=== PATIENT | female | born 1990 | race Caucasian/White ===

== ENCOUNTER 2018-12-28 18:32 | Observation (INO) ==
--- NOTE | 2018-12-28 18:55 | Emergency Department Note ---
Disposition Clinical Impression: Ureter colic Vomiting Qualifiers: Vomiting type: unspecified Vomiting Intractability: non-intractable Nausea presence: with nausea Qualified Code(s): R11.2 - Nausea with vomiting, unspe cified Disposition: Home, Self-Care Condition: Good Instructions: Abdominal Pain (ED), Renal Colic (ED) Reasons to Return/Additional Instructions: Clear liquids only while vomiting. No dairy, no solids until vomiting stops completely. Drink small amounts of fluid frequently (at least 1 ounce every 30 minutes). Gatorade, sports drinks, missy shane, lemon [place] soda, herbal teas are the best choices. Use Imodium [id number] for diarrhea if present. Do not use other antidiarrheal products. Tylenol is best for aches or fever as ibuprofen in this illness can upset your stomach. Avoid orange juice, tomato juice, grapefruit juice, and milk Do not eat solids for at least 12 hours after vomiting has stopped. Then progress to dry toast (no butter or jelly), bouillon, or other clear soups. The emergency examination and workup today did not find any evidence of emergent intra-abdominal pathology. It is important though, that you are aware that some illnesses such as early appendicitis, bowel ischemia, bowel obstruction and others initially present without any significant changes in the exam or tests available and that these might progress to require treatment. For this reason, you should immediately return to the emergency department if you experience Fever, Increased pain, pain that changes in character, feelings of dizziness or weakness, especially while standing up, vomiting, fever, or any bleeding or if the pain in your abdomen gets worse, Increased pain, pain that changes from hurting all over to hurting in one spot, or your condition changes, you should be seen by a doctor. Call your family doctor. Follow-up with your family doctor or doctor to whom you have been referred. Follow all instructions given to you in the emergency department Important: When you had your blood pressure taken, if the top number was greater than 120 and/or the bottom number was greater than 80 you were diagnosed with prehypertension or hypertension, , it is recommended that you call your primary care provider or a primary care provider of your choice to arrange follow-up within 1 week. Elevated blood pressures which go untreated can lead to stroke or heart attack, kidney failure, or other life-threatening diseases. If you were prescribed for outpatient testing please call to [facility] to schedule an appointment for your test that was ordered. If you have been prescribed an antibiotic: Take it as instructed until it is all finished. If you find you cannot tolerate that medication for some reason, call your doctor for a replacement. If you have had an EKG reading in the emergency department, it will be reviewed by preventive maintenance engineer . If the review changes or diagnosis, you will be contacted. If you had a specimen collected for culture, a culture report takes 72 hours to generate. You will be contacted if change in treatment is needed based on the culture results. Return if your condition worsens or if you have severe pain, or worsening of symptoms such as fever, vomiting, or difficulty breathing or if you feel worse in any way. Call your primary senior care assistant to make a follow-up appointment as a result of this emergency department visit. If you do not have a primary care physician or specialist, Call to find a primary care or other specialist physician contact [email or web address] or call [phone] or call [place] [facility] for appointment at [phone] and make an appointment to be seen. If you have taken, received or been prescribed a drug /medication that may cause drowsiness (Percocet, Vicodin, Robaxin, methocarbamol, Tramadol, phenergan, promethazine, vistaril, hydroxyzine, atarax, Haldol, Trazadone, Diazepam, Lorazepam, Hydroxizine, haloperidol, Inapsine, droperidol, Xanax, Hydrocodone, Oxycodone, Codeine, Cocaine, Heroin or any others) do not drive, drink alcohol, or operate machinery that requires you to be alert for at least 8 hours. If you or your child was prescribed opiate medication as a result of a painful condition treated during this emergency visit, be aware that this medication comes with risks of addiction. Prescriptions: Ondansetron ODT [Zofran ODT] 4 mg SL Q8HR PRN #14 tab.rapdis PRN Reason: Nausea Referrals: Astrid Nogueira CNP [Primary Care Provider] - Time of Disposition: 20:02 Abdominal Pain HPI - General Stated Complaint: R kidney pain Time Seen by Provider: 12/28/18 18:38 Source: patient, family, other (Medical records) Mode of arrival: ambulatory Limitations: no limitations Nursing Notes Reviewed: Yes Vital Signs Reviewed: Yes - History of Present Illness HPI Narrative: Patient developed sudden onset of right flank pain 8 hours prior to arrival associated with radiation to the lower abdomen and remained unilateral. She had been diagnosed with a right ureteral calculi, failed outpatient management of her pain, had a stent placed by Santana Berry on Wednesday whose discharge plan indicates that she should remove the stent in 3 days Patient tells me that she had a call from the urology office today telling her to remove the stent mom states that stent was removed by patient at approximately 11 AM. Patient indicates ever since then the pain has been extremely intense. Feels similar to her previous kidney stone. Pain is right sided, flank pain, radiating, and very intense. In the last hour she has begun to vomit. There was associated groin pain and some urgency and difficulty urinating. The patient also experienced associated symptoms of nausea, vomiting, but denies seeing any blood in the urine pain character is described as sharp and is intense. It has stayed constant with increasing intensity to the pain. Denies associated fever or chest pain Past medical history: Patient has had multiple previous kidney stones Review of systems:. Nausea, vomiting, sweating, some difficulty feeling need to urinate frequently. Reports no visible blood in urine. All other systems reviewed and negative Physical exam: Constitutional: Patient is in distress with the severity of current pain level. Appears acutely un comfortable leaning forward at bedside vomiting yellowish fluid, holding her right flank moaning in pain. The patient appears well-developed and well-nourished. Head: Normocephalic and atraumatic External ears and scalp are normal Nose normal Mouth and throat: oropharynx is clear and moist mucous membranes are normal Eyes: Conjunctiva normal, extraocular muscle movements and lids are normal Neck normal range of motion and phonation normal. Cardiovascular: Rapid heart rate. Regular heart rhythm. Normal heart sounds and intact distal pulses Pulmonary chest: No respiratory distress. Effort normal and breath sounds are clear Abdomen: Soft and mildly tender diffusely. Normal appearance without distention and bowel sounds are normal. CVA: Tender to palpation on the right Muscular skeletal: Patient is tender over the lower back normal range of motion of extremities Neurologic: Patient is alert and oriented to person and place as well as time. They have normal strength. Skin is warm and dry and intact Psychiatric: Patient has anxious mood, speech is normal and behavior is normal. Thought content is normal - Related Data Home Medications Medication Instructions Recorded Confirmed Docusate [Colace] 100 mg PO BID 12/28/18 12/28/18 Previous Rx's Medication Instructions Recorded HYDROcodone/Acet 5/325 mg [[place] 1 tab PO Q6H PRN 4 Days #15 tab 12/26/18 5-325 mg] Phenazopyridine HCl [Pyridium] 200 mg PO TIDAC #12 tab 12/26/18 Ondansetron ODT [Zofran ODT] 4 mg SL Q8HR PRN #14 tab.rapdis 12/28/18 Allergies Allergy/AdvReac Type Severity Reaction Status Date / Time cefixime [From Suprax] Allergy Anaphylaxis Verified 12/28/18 18:48 All systems ED: reviewed and negative except as stated. Review of Systems: As Per HPI Abdominal Pain PMH - Past Medical History Medical history: Reports: kidney stones Female Surgical History: Reports: ureteral stent STAFF RESPIRATORY THERAPIST history: Reports: bilateral tubal ligation Psychiatric history: Reports: no psych history - Social History Smoking status: Current every day smoker Alcohol use: Reports: none Drug use: Reports: none Physical Exam See history of present illness Course - Reevaluation(s) Reevaluation #1: disc case w/ dr Blanchard who indicates that pt likely has transient ureteral edema as a result of stent removal also suggests B&O suppositories if they are available suggests unlikey to require readmission, would suggest repeat ct, to r/o residual fragments as a remote consideration but would agree w/ admission here or [facility] if needed. Time: 18:56 Reevaluation #2: Patient appears much more comfortable. States her pain is nearly resolved. He is tolerating by mouth fluids without any further nausea or vomiting. I reviewed the test results with patient / family member. They understand the need for follow-up They understand to return to the emergency department if symptoms worsen. MDM: The emergency examination and workup today do not find any evidence of emergent intra-abdominal pathology. I have considered all of the elements of the relevant differential diagnosis. The patient /family are aware of some illnesses such as early appendicitis, mesenteric ischemia, bowel obstruction and others initially present without any significant changes in the exam or tests available and that these might progress to require treatment. They are aware and are voicing understanding that if any of the following occur, they should immediately return to the emergency department: Increased pain, pain that changes in character, feeling dizzy or weak especially while standing up, vomiting, fever, or any bleeding. I discussed the patient's presentation, workup and exam. Opportunity given for questions to be answered. Verbal discharge instructions were given to this patient and available family members in addition to written discharge instructions provided. They verbalize understanding of these instructions and the need to return should symptoms worsen or new symptoms occur. . Time: 20:00 Vital Signs Temperature 98.4 F 12/28/18 18:40 Pulse Rate 78 12/28/18 18:40 Respiratory Rate 18 12/28/18 18:40 Blood Pressure 125/80 12/28/18 18:40 O2 Sat by Pulse Oximetry 96 12/28/18 18:40 Temperature 98.4 F 12/28/18 18:40 Pulse Rate 78 12/28/18 18:40 Respiratory Rate 18 12/28/18 18:40 Blood Pressure 125/80 12/28/18 18:40 O2 Sat by Pulse Oximetry 96 12/28/18 18:40 Oxygen Delivery Oxygen Delivery Room Air Abdominal Pain - MDM Narrative Medical decision making narrative: Ureteral colic - Differential Diagnosis Differential Diagnosis: Likely: abdominal pain non-specific, calculus of kidney - Medical Records Medical records reviewed: Yes I reviewed the patient's medical records. Had stent placed on 12/26 with instructions to remove in 3-5 days. - Lab Data Lab results reviewed: Yes I reviewed the patient's lab results. Lab Results 12/28/18 12/28/18 Range/Units 19:14 19:14 Urine Color [place] A (Yellow) Urine Clarity Cloudy A (Clear) Urine pH 6.5 (5.0-8.0) pH Units Ur Specific [place] 1.025 (1.010-1.025) Urine Protein >=300 H (Neg-Trace) mg/dL Urine Glucose (UA) 100 H (Normal) mg/dL Urine Ketones Trace H (Negative) mg/dL Urine Blood Large H (Negative) Urine Nitrite Positive A (Negative) Urine Bilirubin Small H (Negative) Urine Urobilinogen 2.0 H (Normal) mg/dL Ur Leukocyte Esterase Negative (Negative) Urine Microscopic RBC 50-100 H (0-3) per hpf Urine Microscopic WBC 3-5 H (0-3) per hpf Ur Squamous Epith Cells Few (None-Few) per lpf Urine Bacteria Many H (None-Few) per hpf Ur Culture Indicated? YES A (NO) Urine Test Negative (Negative) - Radiology Data Radiology results reviewed: Yes I reviewed the patient's radiology results. FINDINGS: There is a normal bowel gas pattern seen in the abdomen. There are no abnormal calcifications seen overlying the kidneys or along the course of the ureters. There are no abnormal calcifications seen overlying the bladder. XR/XR KUB IMPRESSION: No acute abnormality. D/ / Jin Grimm MD / Jin Grimm MD Interpreting Provider: Jin Grimm MD
[2018-12-28] MEDS: Ketorolac 30 MG/ML VIAL IM ONE ×2 (19:05→19:17)
[2018-12-28] MEDS: *HR* Promethazine 25 MG/ML VIAL IM ONE ×2 (19:05→19:18)
[2018-12-28] MEDS: *HR* HYDROmorphone 2 MG/ML SYRINGE IM ONE ×2 (19:05→19:18)
[2018-12-28] MEDS ORDERED: *HR* HYDROmorphone (PF) 1 MG/ML SYRINGE IVP ONE (19:09)
[2018-12-28] MEDS ORDERED: Ketorolac 30 MG/ML VIAL IVP ONE (19:09)
[2018-12-28] MEDS ORDERED: Promethazine 12.5 MG in 0.9 % Sodium Chloride 50 ML IVPB ONE (19:09)
[2018-12-28 19:22] LABS: Bilirubin,Urine Small (Negative); Blood,Urine Large (Negative); Clarity,Urine Cloudy (Clear); Color,Urine Orange (Yellow); Glucose,Urine (UA) 100 mg/dL (Normal); Ketones,Urine Trace mg/dL (Negative); Leukocyte Esterase,Urine Negative (Negative); Nitrite,Urine Positive (Negative); PH,Urine 6.5 pH Units (5.0-8.0); Protein,Urine >=300 mg/dL (Neg-Trace); Specific Gravity,Urine 1.025 (1.010-1.025)
[2018-12-28] MEDS ORDERED: *HR* Promethazine 25 MG/ML VIAL IVP ONE (19:30)
[2018-12-28 19:37] LABS: Bacteria,Urine Many per hpf (None-Few); RBC,Urine 50-100 per hpf (0-3); Squamous Epithelial Cell,Urine Few per lpf (None-Few)
[2018-12-28] MEDS: 0.9 % Sodium Chloride 1,000 ML IVC SCH ×3 (19:54→23:52)
[2018-12-28] MEDS ORDERED: *HR* FentaNYL (PF) 100 MCG/2 ML VIAL IVP ONE ×3 (20:31→21:48)
[2018-12-28] MEDS ORDERED: Naloxone 0.4 MG/ML INJ IVP PRN (22:46)
[2018-12-28] MEDS ORDERED: Promethazine 12.5 MG in 0.9 % Sodium Chloride 100 ML IVPB ONE (22:46)
[2018-12-28] MEDS ORDERED: Ondansetron 4 MG/2 ML VIAL IVP PRN (22:46)
[2018-12-28] MEDS ORDERED: *HR* Promethazine 25 MG/ML VIAL IVP PRN (22:46)
[2018-12-28] MEDS ORDERED: 0.9 % Sodium Chloride 1,000 ML IVC SCH (22:46)
[2018-12-28] MEDS: *HR* OxyCODONE Immed Rel 5 MG TABLET PO PRN (23:50)
[2018-12-29] MEDS: *HR* HYDROmorphone (PF) 1 MG/ML SYRINGE IVP PRN ×2 (03:34→09:32)
[2018-12-29] MEDS: 0.9 % Sodium Chloride 1,000 ML IVC SCH (03:59)
[2018-12-29 08:00] LABS: BUN/Creatinine Ratio 15 (6-26); Blood Urea Nitrogen 10 mg/dL (6-20); Calcium 7.1 mg/dL (8.6-10.3); Carbon Dioxide 17 mEq/L (23-29); Chloride 113 mEq/L (98-107); Glucose 100 mg/dL (70-105); Osmolality,Calculated 287 (280-300); Sodium 139 mEq/L (136-145); eGFR For African Americans > 60 (> 60); eGFR For Non-African Americans > 60 (> 60)
[2018-12-29] MEDS: *HR* OxyCODONE Immed Rel 5 MG TABLET PO PRN (08:21)
[2018-12-29] MEDS ORDERED: Isovue-370 500 ML BOTTLE IVP ONE ×2 (09:00→09:21)
[2018-12-29 09:08] LABS: Basophils % 0.4 %; Eosinophils # 0.1 K/mcL (0.0-0.6); Eosinophils % 0.8 %; Hematocrit 33.3 % (35.3-44.9); Hemoglobin 11.8 g/dL (11.5-15.4); Immature Granulocytes % 0.3 % (0-4); Lymphocytes # 2.1 K/mcL (0.6-4.6); Mean Corpuscular HGB Conc 35.4 g/dL (31.6-35.5); Mean Corpuscular Hemoglobin 31.6 pg (28.0-33.3); Mean Corpuscular Volume 89.3 fL (83.0-100.0); Mean Platelet Volume 10.9 fL (9.4-12.4); Monocytes # 0.5 K/mcL (0.0-1.3); Monocytes % 6.3 %; Neutrophils # 4.4 K/mcL (1.6-8.9); Platelet Count 181 K/mcL (140-400); Red Blood Count 3.73 M/mcL (3.82-4.97); Red Cell Distribution Width 12.5 % (11.5-14.5); Segmented Neutrophils % 62.2 %; White Blood Count 7.1 K/mcL (4.3-11.1)
--- NOTE | 2018-12-29 09:17 | Internal Med History&Physical ---
Date of Encounter: 12/29/18 Time of Encounter: 09:15 Assessment and Plan (1) Ureter colic Current visit: Yes Status: Acute Patient has been admitted to the medical floor for pain management due to ureterocolic. Patient with recent treatment per urology with ureter stent which was removed on Wednesday. Patient's pain began within 8 hours at removal of stent and has intensified. Patient's pain has only been moderately controlled during her stay and she continues with moderate hematuria. Patient has received IV fluid resuscitation during her stay. We will obtain a stat abdomen and pelvis CT scan with and without. We will contact urology at [facility] for possible transfer (2) Vomiting Current visit: Yes Status: Acute Currently patient denies any nausea but has had issues with vomiting overnight. We will continue with when necessary [place] Qualifiers: Vomiting type: unspecified Vomiting Intractability: non-intractable Nausea presence: with nausea Qualified Code(s): R11.2 - Nausea with vomiting, unspecified Internal Medicine - H&P: HPI Chief complaint: right flank pain Admitted From: Emergency Dept Plans for Post Hospital Care: Home History of present illness: Ms. Roy is a 28 year old female who presented to emergency department with complaints of right flank pain. Patient had stated that she had been seen by Dr. Steen for a right humeral calculi and had a ureter stent placed. Patient had D ureter stent removed on Wednesday and approximately 8 hours later she began to have a right abdominal flank pain which over time became intense. Patient stated that the pain was similar to pain she had when she had her renal stone. Patient reportedly had began vomiting and stated that she had began having difficulty with urination. Patient reports hematuria. Urology was notified and the plan at that time was to admit patient for pain control and to give high volume of fluids and evaluate overnight. Patient's pain has continued and intensity and she continues to have hematuria. Patient complaints of tenderness during palpation of abdomen and right lower back on percussion. Patient continues to require frequent pain medication, which she states has been moderately effective. Patient continues to describe her pain as a 7 out of 10 Patient with a history of renal stones. Past Med Surg Social Fam HX - Past Medical History Source: patient, old records reviewed Medical history: kidney stones Psychiatric history: no psych history - Past Surgical History Surgical History: no surgical history Additional surgical history: Right KIDNEY STENT. T&A - Social History Smoking Status: Current every day smoker Packs per day: 1 Smokeless Tobacco Status: No Alcohol use: none Drug use: none Internal Medicine - H&P: Meds HYDROcodone/Acet 5/325 mg [[place] 5-325 mg] 1 tab PO Q6H PRN 4 Days #15 tab 12/26/18 [Rx] Phenazopyridine HCl [Pyridium] 200 mg PO TIDAC #12 tab 12/26/18 [Rx] Docusate [Colace] 100 mg PO BID 12/28/18 [History] Ondansetron ODT [Zofran ODT] 4 mg SL Q8HR PRN #14 tab.rapdis 12/28/18 [Rx] Allergy/AdvReac Type Severity Reaction Status Date / Time cefixime [From Suprax] Allergy Anaphylaxis Verified 12/28/18 18:48 All Systems PM: A 10-system review of systems was performed and is negative for pertinent findings except as documented above in the HPI. - Constitutional Constitutional: as per HPI, no chills, no fever(s), no night sweats - EENT Eyes: as per HPI, no change in vision, no discharge, no pain, no photophobia Ears: as per HPI, no ear discharge, no ear pain, no tinnitus Nose, mouth and throat: as per HPI, no dysphagia, no nasal discharge, no neck pain, no sore throat - Cardiovascular Cardiovascular ROS IM: as per HPI, no chest pain, no diaphoresis, no dyspnea, no lightheadedness, no palpitations, no syncope - Respiratory Respiratory: as per HPI, no cough, no dyspnea, no wheezing, no excessive phlegm production - Gastrointestinal Gastrointestinal: as per HPI, no abdominal pain, no diarrhea, no hematemesis, no hematochezia, no melena, no nausea, no vomiting - Genitourinary Genitourinary: as per HPI, no change in urinary stream, no dysuria, no flank pain, no hematuria - Musculoskeletal Musculoskeletal ROS IM: as per HPI, no numbness, no tingling - Integumentary Integumentary IM: as per HPI, no rash, no unusual bruising - Neurological Neurological ROS: as per HPI, no confusion, no convulsions, no focal weakness, no numbness, no tingling, no tremor(s) - Psychiatric Psychiatric: as per HPI - Hematologic/Lymphatic Hematologic/Lymphatic: no easy bruising - Constitutional Vitals: Temp Pulse Resp BP Pulse Ox 98.8 F 119 16 112/69 100 12/29/18 07:26 12/29/18 07:26 12/29/18 07:26 12/29/18 07:26 12/29/18 07:26 General appearance: Present: A&O X 3, severe distress Exam: Patient currently with severe pain and having some difficulty with conversation - Head Head exam: Present: atraumatic, normocephalic - Eye Eye exam: Present: PERRL, conjuntiva pink, sclera anicteric Pupils: Present: PERRL - Neck Neck exam general surgery: Present: supple, trachea midline. Absent: lymphadenopathy - Respiratory Respiratory exam: Present: CTAB. Absent: accessory muscle use, rales, rhonchi, wheezes - Cardiovascular Cardiovascular exam: Present: RRR, +S1, +S2. Absent: diastolic murmur, gallop, rubs, systolic murmur - GI/Abdominal GI/Abdominal exam: Present: normal bowel sounds, soft, no peritoneal signs. Absent: distended, tenderness Additional comments: Patient with tenderness during palpation of right abdominal quadrants and to right abdominal flank during percussion of lower back - Additional comments: Hematuria - Extremities Exam Extremities exam: Present: warm, radial pulses palpable and symmetrical. Absent: calf tenderness, cyanotic, pedal edema - Neurological Exam Neurological exam: Present: CN II-XII intact, oriented X3, no focal deficits. Absent: pronater drift, facial droop, speech deficit - Skin Skin exam: Present: dry, intact Internal Med - H&P Results - Labs CBC & Chem 7: 12/28/18 18:45 12/29/18 07:30 Labs: Short CBC 12/28/18 Range/Units 18:45 WBC 7.1 (4.3-11.1) K/mcL Hgb 11.8 (11.5-15.4) g/dL Hct 33.3 L (35.3-44.9) % Plt Count 181 (140-400) K/mcL Neutrophils # 4.4 (1.6-8.9) K/mcL BMP 12/29/18 07:30 Sodium 139 Potassium 4.0 Chloride 113 H Carbon Dioxide 17 L BUN 10 Creatinine 0.67 Glucose 100 Calcium 7.1 L Urine 12/28/18 Range/Units 19:14 Urine Color [place] A (Yellow) Urine Clarity Cloudy A (Clear) Urine pH 6.5 (5.0-8.0) pH Units Ur Specific [place] 1.025 (1.010-1.025) Urine Protein >=300 H (Neg-Trace) mg/dL Urine Glucose (UA) 100 H (Normal) mg/dL - VTE Documentation of Mechanical Device: Intermittent pneumatic compression device
--- NOTE | 2018-12-29 09:39 | Discharge Summary ---
Orders not resulted at time of discharge: Pending orders 12/28/18 19:14 Culture,Urine [RM] Stat Date of Encounter: 12/29/18 Time of Encounter: 09:33 - Discharge Diagnosis (1) Ureter colic Priority: Primary Status: Acute Comments: Patient was admitted for fluid resuscitation and pain management overnight after reoccurrence of ureter colic. Pain is only been marginally controlled and patient is being in transferred to [place] for further evaluation and management per urology. (2) Vomiting Priority: Secondary Status: Acute Comments: Patient has experienced some vomiting, which has been controlled with the use of Zofran. We will continue this after discharge Qualifiers: Vomiting type: unspecified Vomiting Intractability: non-intractable Nausea presence: with nausea Qualified Code(s): R11.2 - Nausea with vomiting, unspecified Hospital course: Ms. Roy is a 28 year old female, who presented to emergency department with complaints of right flank pain. Patient had stated that she had been seen by Dr. Steen for a right humeral calculi and had a ureter stent placed. Patient had D ureter stent removed on Wednesday and approximately 8 hours later she began to have a right abdominal flank pain which over time became intense. Patient stated that the pain was similar to pain she had when she had her renal stone. Patient reportedly had began vomiting and stated that she had began having difficulty with urination. Patient reports hematuria. Urology was notified and the plan at that time was to admit patient for pain control and to give high volume of fluids and evaluate overnight. Patient's pain has continued and intensity and she continues to have hematuria. Patient complaints of tenderness during palpation of abdomen and right lower back on percussion. Patient continues to require frequent pain medication, which she states has been moderately effective. Patient continues to describe her pain as a 7 out of 10 Patient continues with severe right flank pain which has been only moderately controlled with current pain medications. Patient has received IV fluid resuscitation overnight but continues with moderate hematuria. Patient with increased intensity of pain during palpation of abdomen on the right quadrants and flank. Patient has been transferred to [facility] for further evaluation and treatment per urology. We will attempt to obtain a stat CAT scan of the abdomen and pelvis prior to her departure. Discharge discussed with: patient Time spent discussing smoking cessation with patient: 3 to 10 minutes - Time Spent with Patient Total time spent providing and/or coordinating discharge services: Time spent: Less than 30 minutes - Discharge Medications Prescriptions: New Ondansetron ODT [Zofran ODT] 4 mg SL Q8HR PRN #14 tab.rapdis PRN Reason: Nausea No Action HYDROcodone/Acet 5/325 mg [[place] 5-325 mg] 1 tab PO Q6H PRN 4 Days #15 tab PRN Reason: Pain Phenazopyridine HCl [Pyridium] 200 mg PO TIDAC #12 tab Docusate [Colace] 100 mg PO BID Home Medications: HYDROcodone/Acet 5/325 mg [[place] 5-325 mg] 1 tab PO Q6H PRN 4 Days #15 tab 12/26/18 [Rx] Phenazopyridine HCl [Pyridium] 200 mg PO TIDAC #12 tab 12/26/18 [Rx] Docusate [Colace] 100 mg PO BID 12/28/18 [History] Ondansetron ODT [Zofran ODT] 4 mg SL Q8HR PRN #14 tab.rapdis 12/28/18 [Rx] Allergies/Adverse Reactions: Allergy/AdvReac Type Severity Reaction Status Date / Time cefixime [From Suprax] Allergy Anaphylaxis Verified 12/28/18 18:48 Date of admission: 12/28/18 22:38 Primary care physician: Astrid Nogueira CNP Discharging clinician: [place] - Constitutional Vitals: Temp Pulse Resp BP Pulse Ox 98.8 F 119 16 112/69 100 12/29/18 07:26 12/29/18 07:26 12/29/18 07:26 12/29/18 07:26 12/29/18 07:26 General appearance: Present: A&O X 3, severe distress - Head Head exam: Present: atraumatic, normocephalic - Eye Eye exam: Present: PERRL, conjuntiva pink, sclera anicteric Pupils: Present: PERRL - Neck Neck exam general surgery: Present: supple, trachea midline. Absent: lymphadenopathy - Respiratory Respiratory exam: Present: CTAB. Absent: accessory muscle use, rales, rhonchi, wheezes - Cardiovascular Cardiovascular exam: Present: RRR, +S1, +S2. Absent: diastolic murmur, gallop, rubs, systolic murmur - GI/Abdominal GI/Abdominal exam: Present: normal bowel sounds, soft, no peritoneal signs. Absent: distended, tenderness Additional comments: Severe pain on palpation of right abdominal quadrants and during percussion right lower back - Additional comments: Hematuria - Extremities Exam Extremities exam: Present: warm, radial pulses palpable and symmetrical. Absent: calf tenderness, cyanotic, pedal edema - Neurological Exam Neurological exam: Present: CN II-XII intact, oriented X3, no focal deficits. Absent: pronater drift, facial droop, speech deficit - Skin Skin exam: Present: dry, intact - Patient Status Disposition: Transfer Critical Access Hosp Condition: Good Functional capacity at discharge: independent ambulation Overall status at discharge: patient is not back to baseline - Discharge Instructions Follow Up With: Astrid Nogueira BOILER ROOM OPERATOR [Primary Care Provider] - Forms: ED Satisfaction Letter - Diet and Activity Activity: increase activity as tolerated Diet: advance to your usual diet - VTE Documentation of Mechanical Device: Intermittent pneumatic compression device
[2018-12-29] MEDS ORDERED: *HR* HYDROmorphone 2 MG/ML SYRINGE IVP PRN (09:51)
[2018-12-29] MEDS ORDERED: *HR* HYDROcodone/Acet 5/325 mg TABLET PO PRN (09:52)
[2018-12-29] MEDS ORDERED: 0.9 % Sodium Chloride 1,000 ML IVC SCH (10:00)
[2018-12-29 11:19] VITALS: BP 114/66
[2018-12-29] MEDS ORDERED: levoFLOXacin 750 MG/150 ML 750 MG/150 ML BAG IVPB ONE (12:39)
== END 2018-12-29 13:55 | disposition critical access hospital (66) ==
LOC: INPGRE 18:32 → EMEROOGRE 18:32 → INPGRE 22:48